=== PATIENT | male | born 1995 | race American Indian/Alaskan Native ===

== ENCOUNTER 2016-09-24 16:19 | Emergency (ER) | payer OTHER ==
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
[2016-09-24] MEDS: TORADOL IM ONE (18:11)
--- NOTE | 2016-09-24 18:12 | Cat Scan Report ---
FINAL REPORT EXAM: CT CERVICAL SPINE WO CON HISTORY: Fall TECHNIQUE: Noncontrast serial axial images through the cervical spine with coronal and sagittal reconstruction. PRIORS: None. FINDINGS: No gross abnormality is seen in the visualized portion of the brain. Mastoid air cells are well aerated. Prevertebral soft tissues appear within normal limits. Visualized portion of the lung apices are clear. No acute fracture or anterolisthesis is identified. IMPRESSION: 1. No acute fracture or anterolisthesis is identified.
[2016-09-24 19:30] VITALS: BP 127/68
== END 2016-09-24 19:34 | disposition home or self-care (01) ==
LOC: ED 16:19
DX: T14.8 Other injury of unspecified body region (principal); J45.909 Unspecified asthma, uncomplicated; V87.7XXA Person injured in collision between other specified motor vehicles (traffic), initial encounter; W22.19XA Striking against or struck by other automobile airbag, initial encounter; Y93.89 Activity, other specified; Y99.9 Unspecified external cause status; Y92.410 Unspecified street and highway as the place of occurrence of the external cause
CPT/HCPCS: 70450; 72125; 96372; 99284; J1885